=== PATIENT | female | born 1960 | race African-American/Black ===

== ENCOUNTER 2019-04-30 14:21 | Day surgery (SDC) | payer OTHER ==
[~2019-04-30] VITALS: Ht 170.2 cm; Wt 81.7 kg
[2019-04-30] VITALS (15 sets, daily range): BP systolic 115–131; BP diastolic 70–88; PULSE 74–86; RESP 15–22; Ht 170.2 cm; Wt 81.7 kg
[~2019-04-30 14:21] MED LIST: ADV25050 INH; APAP CODEINE PO; DEXL30CA2 PO; GABA-526 PO; LAMO25TB7 PO; OMEP20CA16 PO; PRAV40TA76 PO
[2019-04-30] MEDS ORDERED: LACTATED RINGER'S 1,000 ML IV SCH (16:00)
--- NOTE | 2019-04-30 17:12 | PREAC ---
Date/Time of Note Date/Time of Note DATE: 04/30/19 TIME: 17:10 Anesthesia Eval and Record Evaluation Time Pre-Procedure Interview DATE: 04/30/19 TIME: 17:10 Age 58 Sex female NPO: 8 hrs Preoperative diagnosis Left ear chronic otitis media Planned procedure Left ear tympanostomy Past Medical History Past Medical History: Includes Cardio: HTN, Dyslipidemia Pulm: Asthma Musculoskeletal: Osteoarthritis GI: GERD Psych: Bipolar Surgery & Anesthesia Issues No known issue Meds Anticoagulation: No Beta Luiza within 24 hr: No Reason Beta Luiza not given: Pt. not on B-Luiza Reported Medications Dexlansoprazole (Dexilant) 30 Mg Cap., 30 MG PO BEFORE MEALS 10/18/13 Salmeterol Xinaf/Fluticasone* (Advair*) 1 Inh Inha, 14 INH INH 10/18/13 Lamotrigine* (Lamotrigine* CHEW) 25 Mg Tab.disper, 100 MG PO DAILY 11/28/11 Gabapentin* (Gabapentin*) 600 Mg Tablet, 600 MG PO BID 11/28/11 Omeprazole* (Omeprazole*) 20 Mg Capsule.dr, 20 MG PO DAILY AC BREAKFAST 11/28/11 [Apap-Codeine] No Conflict Check, PO TID 11/28/11 Pravastatin Sodium* (Pravastatin Sodium*) 40 Mg Tablet, 40 MG PO HS 11/28/11 Current Medications Lactated Ringer's 1,000 ml @ 30 mls/hr Q24H IV Last administered on 04/30/19at 16:30; Admin Dose 30 MLS/HR; Start 04/30/19 at 16:00 Meds reviewed: Yes Allergies Coded Allergies: No Known Allergy (Verified , 10/18/13) Allergies Reviewed: Yes Labs/Studies Labs Reviewed: Reviewed by anesthesiologist test: N/A Pre-procedure Exam Last vitals Vital Signs Date Temp Pulse Resp B/P (MAP) Pulse Ox O2 O2 Flow FiO2 Time Delivery Rate 04/30/19 97.2 76 16 121/76 100 Room Air 15:53 (91) Airway: Adequate mouth opening Mallampati: Mallampati I Teeth: Normal Lung: Normal Heart: Normal ASA Physical Status ASA physical status: 3 Emergency: None Planned Anesthetic General/MAC: LMA Planned Pain Management Parenteral pain med Pre-operative Attestations Prior to commencing anesthesia and surgery, the patient was re-evaluated, there was verification of: *The patient's identity *The results of appropriate recent lab work and preoperative vital signs *The above evaluation not changing prior to induction *Anesthetic plan, risk benefits, alternative and complications discussed with patient/family; questions answered; patient/family understands, accepts and wishes to proceed. MCKAYLA GREGORY MD Apr 30, 2019 17:12
[2019-04-30] MEDS ORDERED: HYDROGEN PEROXIDE 118 ML ONE (17:15)
[2019-04-30] MEDS ORDERED: LIDOCAINE 2% (SDV) 5 ML INJ ONE (17:22)
[2019-04-30] MEDS ORDERED: PROPOFOL 20 ML ONE (17:22)
--- NOTE | 2019-04-30 17:34 | HPN ---
Date/Time of Note Date/Time of Note DATE: 04/30/19 TIME: 17:34 Interval H&P Admission Note Pt. seen H&P reviewed: No system changes JANESSA ERICKSON MD Apr 30, 2019 17:34
[2019-04-30] MEDS ORDERED: SEVOFLURANE 15 MIN ONE (17:45)
--- NOTE | 2019-04-30 17:55 | OPR ---
Date/Time of Note Date/Time of Note DATE: 04/30/19 TIME: 17:52 Operative Report Procedure Date: Apr 30, 2019 Preoperative Diagnosis Left COME Postoperative Diagnosis Same Operation/Procedure Performed Left myringotomy with tube Surgeon see signature line [employer] Technical Lead Senior Developer None Anesthesia Type: general Estimated Blood Loss: none Transfusion none Specimen None Grafts/Implants none Tubes/Drains Sheehey Complications none Pt Condition Post Procedure: stable Disposition: PACU Indications Left COME, CHL Procedure Description Description of procedure: The patient was identified in the holding area. We had a discussion to confirm understanding of all indications risks benefits alternatives and postoperative care associated with the operation. The parents signed informed consent and the child was taken to the operating room. The patient was laid supine on the operating room table and anesthesia was provided with mask ventillation. Microscopic evaluation of the left ear was performed. The TM was visualized after cerumenectomy and a myringotomy knife was used to make a myringotomy in the anteroinferior quadrant. A She[place] ventilation tube was placed without difficulty. The patient was awakened and taken to the PACU in stable condition. Complications: None JANESSA ERICKSON MD Apr 30, 2019 17:54
[2019-04-30] MEDS ORDERED: EPHEDrine 25 MG/5 ML SYG IV PRN (18:30)
[2019-04-30] MEDS ORDERED: MEPERIDINE 25 MG INJ IV PRN (18:30)
[2019-04-30] MEDS ORDERED: LABETALOL HCL 20MG INJ IV PRN (18:30)
[2019-04-30] MEDS ORDERED: FENTAnyl 50 MCG/ML VIAL IV PRN ×3 (18:30)
[2019-04-30] MEDS ORDERED: OXYCODONE/ACETAMINOPHEN (5/325) TAB PO PRN ×2 (18:30)
[2019-04-30] MEDS ORDERED: ONDANSETRON 4 MG INJ IV PRN (18:30)
[2019-04-30] MEDS ORDERED: MIDAZOLAM 1 MG/ML 2 ML INJ IV PRN (18:30)
[2019-04-30] MEDS ORDERED: DIPHENHYDRAMINE 50 MG INJ IV PRN (18:30)
[2019-04-30] MEDS ORDERED: METOCLOPRAMIDE 10 MG INJ IV PRN (18:30)
[2019-04-30] MEDS ORDERED: hydrALAzine 20 MG INJ IV PRN (18:30)
--- NOTE | 2019-04-30 19:20 | PAC ---
Date/Time of Note Date/Time of Note DATE: 04/30/19 TIME: 19:20 Post-Anesthesia Notes Post-Anesthesia Note Last documented vital signs Vital Signs Date Temp Pulse Resp B/P (MAP) Pulse Ox O2 O2 Flow FiO2 Time Delivery Rate 04/30/19 97.2 76 16 121/76 100 Room Air 15:53 (91) Activity: WNL Respiratory function: WNL Cardiovascular function: WNL Mental status: Baseline Pain reasonably controlled: Yes Hydration appropriate: Yes Nausea/Vomiting absent: Yes Comments BT: 98.2 MCKAYLA GREGORY MD Apr 30, 2019 19:20
== END 2019-04-30 19:32 | disposition home or self-care (01) ==
LOC: SDS 14:21
PROVIDERS: ATTEND Otolaryngology
DX: H66.92 Otitis media, unspecified, left ear (principal); E78.5 Hyperlipidemia, unspecified; I10 Essential (primary) hypertension; J45.909 Unspecified asthma, uncomplicated
CPT/HCPCS: 69436; 71045; 93005; C1889; Z7512; Z7610